=== PATIENT | female | born 1960 | race African-American/Black ===

== ENCOUNTER 2022-08-22 08:59 | Day surgery (SDC) | payer OTHER ==
[2022-08-18 11:34] VITALS: BMI 22.8
[2022-08-22] MEDS ORDERED: Fentanyl 100 MCG/2 ML VIAL ONE (12:18)
[2022-08-22] MEDS ORDERED: PROPOFOL 40 ML ONE (12:19)
[2022-08-22] MEDS ORDERED: PROPOFOL 20 ML ONE (12:40)
== END 2022-08-22 13:35 | disposition home or self-care (01) ==
LOC: CSHSDC 08:59
PROVIDERS: ATTEND Internal Medicine Gastroenterology
PROC: 0DJD8ZZ Inspection of Lower Intestinal Tract, Via Natural or Artificial Opening Endoscopic (ICD-10-PCS; principal; 2022-08-22)
PROC: 0DB98ZX Excision of Duodenum, Via Natural or Artificial Opening Endoscopic, Diagnostic (ICD-10-PCS; principal; 2022-08-22)
PROC: 0DB68ZX Excision of Stomach, Via Natural or Artificial Opening Endoscopic, Diagnostic (ICD-10-PCS; principal; 2022-08-22)
DX: Z12.11 Encounter for screening for malignant neoplasm of colon (principal); K29.80 Duodenitis without bleeding; K21.9 Gastro-esophageal reflux disease without esophagitis; K31.7 Polyp of stomach and duodenum; K64.9 Unspecified hemorrhoids; I10 Essential (primary) hypertension; F32.9 Major depressive disorder, single episode, unspecified; Z86.010 Personal history of colon polyps; Z79.899 Other long term (current) drug therapy
CPT/HCPCS: 88305; J2704; J3010

== ENCOUNTER 2024-03-20 14:53 | Outpatient (CLI) | payer MEDICARE | END 2024-03-20 14:54 | disposition home or self-care (01) | LOC: CSHMAMMO 14:53 | PROVIDERS: ATTEND Student in an Organized Health Care Education/Training Program | DX: Z78.0 Asymptomatic menopausal state (principal); M85.89 Other specified disorders of bone density and structure, multiple sites | CPT/HCPCS: 77080 ==